=== PATIENT | female | born 1930 | race Caucasian/White ===

== ENCOUNTER 2020-03-14 09:06 | Inpatient (IN) | payer OTHER ==
[~2020-03-14] VITALS: Ht 162.6 cm; Wt 69.4 kg
--- NOTE | 2020-03-14 09:32 | NUR ---
Patient came to ED BIB EMD from facility c/c Sob satting 88 RA ,patient awake alert able to speak noted sob ,place on o2 @ 2L ,hooke in the monitor ,gown ,EKG fall precaution ,call light with in reach continue to monitor .
--- NOTE | 2020-03-14 09:38 | NUR ---
Patient Son made aware of plan of care Augustin [phone] .
[2020-03-14 09:43] LABS: BASOPHILS % (AUTO) 0.5 % (0.0-2.0); EOSINOPHILS % (AUTO) 0.4 % (0.0-6.0); HEMATOCRIT 40 % (33-45); HEMOGLOBIN 13.3 g/dL (11.5-14.8); LYMPHOCYTES # (AUTO) 1.2 /CMM (0.8-4.8); LYMPHOCYTES % (AUTO) 13.6 % (20.0-44.0); MEAN CORPUSCULAR HGB CONC 33 g/dl (31.0-36.0); MEAN CORPUSCULAR VOLUME 94 fL (82-100); MONOCYTES # (AUTO) 0.7 /CMM (0.1-1.30); MONOCYTES % (AUTO) 7.5 % (2.0-12.0); NEUTROPHILS # (AUTO) 7.1 /CMM (1.8-8.9); PLATELET COUNT (AUTO) 327 /CMM (150-450); WHITE BLOOD COUNT (AUTO) 9.1 K/uL (4.3-11.0)
--- NOTE | 2020-03-14 09:56 | NUR ---
Radiology at bedside
[2020-03-14 09:59] LABS: CALCIUM, SERUM 8.6 mg/dL (8.5-10.1); CARBON DIOXIDE 26 mmol/L (21-32); CHLORIDE 106 mmol/L (98-107); CREATININE 1.5 mg/dL (0.6-1.3); GLUCOSE 115 mg/dL (74-106); SODIUM SERUM 142 mmol/L (136-145); UREA NITROGEN, BLOOD 31 mg/dL (7-18)
[2020-03-14 10:04] LABS: ALANINE AMINOTRANSFERASE 183 U/L (12-78); ALBUMIN 3.2 g/dL (3.4-5.0); ALKALINE PHOSPHATASE 100 U/L (46-116); ASPARTATE AMINOTRANSFERASE 86 U/L (15-37); B-TYPE NATRIURETIC PEPTIDE 22251 PG/ML (0-125); BILIRUBIN,DIRECT 0.1 mg/dL (0.0-0.2); BILIRUBIN,TOTAL 0.4 mg/dL (0.2-1.0); TOTAL PROTEIN, SERUM 7.5 g/dL (6.4-8.2)
[2020-03-14] MEDS ORDERED: ACET-73 PO (10:13)
[2020-03-14] MEDS ORDERED: DONE5TAB34 PO (10:13)
[2020-03-14] MEDS ORDERED: BISA-79 PO (10:13)
[2020-03-14] MEDS ORDERED: DEXT15DR6 EACHEYE (10:13)
[2020-03-14] MEDS ORDERED: LOSA25TA27 PO (10:13)
[2020-03-14] MEDS ORDERED: ASPIRIN 325 MG TABLET ONE (10:45)
[2020-03-14] MEDS ORDERED: FUROSEMIDE 40 MG/4 ML VIAL ONE (10:45)
[2020-03-14] MEDS ORDERED: NITROGLYCERIN PACKET 1 GM PACKET ONE (10:46)
--- NOTE | 2020-03-14 10:46 | NUR ---
PAGED [facility] FOR DOCTOR TO DOCTOR.
[2020-03-14] MEDS ORDERED: FUROSEMIDE 40 MG/4 ML VIAL IV ONE (11:00)
[2020-03-14] MEDS ORDERED: ASPIRIN 325 MG TABLET PO ONE (11:00)
[2020-03-14] MEDS ORDERED: NITROGLYCERIN PACKET 1 GM PACKET TD ONE (11:00)
--- NOTE | 2020-03-14 11:29 | NUR ---
Patient elevated BP MD aware with order .
[2020-03-14] MEDS ORDERED: LOSARTAN POTASSIUM 25 MG TABLET PO ONE (11:30)
--- NOTE | 2020-03-14 11:30 | NUR ---
Patient voided BF 300 Ml yellow urine keep patient clean and dry .
[2020-03-14] MEDS ORDERED: LOSARTAN POTASSIUM 25 MG TABLET ONE (11:33)
--- NOTE | 2020-03-14 11:45 | NUR ---
PAGED [facility].
--- NOTE | 2020-03-14 11:53 | NUR ---
PER m/d INSERT INSERT FOLLY CATHETER. PATIENT AGREES TO PLACE A FOLLY CATH. PREP NO NOTED OBSERVED STERILE TECHNIQUE, FR16 GUINEAN YELLOW URINE.
--- NOTE | 2020-03-14 11:57 | NUR ---
Covid swab obtained and send to lab .
--- NOTE | 2020-03-14 12:00 | NUR ---
CALLED NURSING SUP FOR TELE BED.
--- NOTE | 2020-03-14 12:02 | NUR ---
Inserted burgos cath assited by Mercedes Alvarez student nurse .
--- NOTE | 2020-03-14 12:06 | NUR ---
NURSING SUP GAVE TELE BED 201.
--- NOTE | 2020-03-14 12:54 | NUR ---
Fernando report to Pre[facility] FLOOD 201 .
--- NOTE | 2020-03-14 13:30 | NUR ---
RN ADMITTING NOTE Patient arrived on unit via gurney, A/o x2-3 with periods of confusion. Breathing is even and unlabored, showing no signs of acute distress or SOB, saturating 96% on 2L NC. BP 173/94 HR 87 T97.7F RR18. IV line in the LAC#20g is clean and intact s/l. Right wrist #22g is clean and intact s/l. Skin assessed, skin remains intact, patient presents with old scabs and discoloration in BUE and BLE. Bed is in lowest position, side rails x3 in upright position, call light is within reach, fall safety and aspiration precautions enforced. Will continue with plan of care.
[2020-03-14] MEDS ORDERED: HYDROCODONE/APAP 5/325MG TABLET PO PRN (14:00)
[2020-03-14] MEDS ORDERED: BISACODYL (5 MG) 5 MG TABLET.DR PO PRN (14:00)
[2020-03-14] MEDS ORDERED: ENOXAPARIN SODIUM 30 MG/0.3 ML DISP.SYRIN SQ SCH (14:00)
[2020-03-14] MEDS ORDERED: MAG HYDROX/AL HYDROX/SIMETH 30 ML UDC PO PRN (14:00)
[2020-03-14] MEDS ORDERED: ONDANSETRON HCL/PF 4 MG/2 ML VIAL IVP PRN (14:00)
[2020-03-14] MEDS ORDERED: hydrALAZINE HCL IV 20 MG VIAL IV PRN (14:00)
[2020-03-14] MEDS ORDERED: MAGNESIUM HYDROXIDE 30 ML UDC PO PRN (14:00)
[2020-03-14] MEDS ORDERED: CLONIDINE HCL 0.1 MG TABLET PO PRN (14:00)
[2020-03-14] MEDS ORDERED: ACETAMINOPHEN 325 MG TABLET PO PRN (14:00)
[2020-03-14] MEDS ORDERED: Z GUARD REMEDY 2 OZ OINT TP PRN (14:00)
[2020-03-14 16:00] VITALS: BP 137/58
[2020-03-14 16:56] VITALS: BP 137/58
[2020-03-14] MEDS: FUROSEMIDE 40 MG/4 ML VIAL IV SCH ×2 (17:02→21:00)
[2020-03-14] MEDS: hydrALAZINE HCL 50 MG TABLET PO SCH (17:02)
[2020-03-14] MEDS: NITROGLYCERIN 30 GM TUBE TOP SCH (17:56)
[2020-03-14 18:34] LABS: THYROID STIMULATING HORMONE 1.247 uIU/mL (0.358-3.74)
--- NOTE | 2020-03-14 18:59 | NUR ---
RN CLOSING NOTE Patient is resting in bed, A/Ox2, with periods of confusion, showing no signs of acute distress or SOB, saturating 95% on 3L NC. IV lines are clean and intact s/l. Nicholas catheter 1600 out with clear yellow urine. All patient needs met, all due medications given, patient kept clean and dry throughout shift. PCR PENDING. Bed is in lowest position, side rails x3 in upright position, call light is within reach, fall safety and aspiration precautions enforced, will continue with plan of care.
--- NOTE | 2020-03-14 19:41 | NUR ---
APPRAISAL TECHNICIAN OPENING NOTES PATIENT AWAKE IN BED. A/OX2-3. ON 2L NC. NO S/S OF ACUTE RESPIRATORY DISTRESS; BREATHING IS EVEN AND UNLABORED. NO C/O PAIN. TELE MONITOR READING NSR, HEART RATE 89. SUÁREZ CATH PRESENT AND DRAINING WELL; CLEAR YELLOW URINE PRESENT. IV PRESENT ON LEFT AC, SIZE 20 AND RIGHT WRIST, SIZE 20, INTACT & PATENT, HEP LOCKED. CONTACT/DROPLET PRECAUTIONS IN PLACE FOR R/O COVID 19; RESULTS PENDING. SAFETY MEASURES IN PLACE AND PATIENT AND PATIENT'S NEEDS MET. BED LOCKED, ALARM ON, SIDE RAILS X3, CALL LIGHT WITHIN REACH. WILL CONTINUE TO MONITOR.
[2020-03-14 20:00] VITALS: BP 86/42
[2020-03-14] MEDS ORDERED: METOPROLOL TARTRATE 25 MG TABLET PO SCH (21:00)
[2020-03-14 21:11] VITALS: BP 86/42
[2020-03-14 21:42] VITALS: BP 100/58
--- NOTE | 2020-03-14 21:57 | NUR ---
JEWEL SETTER NOTES NOTIFIED POULTRY RAISER WEIGHT LOSS CENTRE MANAGER, SHON LAMBERT, OF PATIENT'S BP OF 100/58. PER BERNARDO MENENDEZ TO HOLD LASIX 4MG IV.
--- NOTE | 2020-03-14 22:25 | NUR ---
BAGGER AND STOCK HANDLER HELPER NOTES RECEIVED CRITICAL LAB VALUE; TROPONIN 1.027. NOTIFIED HEDGE FUND ACCOUNTANT OFFICE ENGINEER, SHON LAMBERT. ORDERS RECEIVED AND CARRIED OUT. WILL CONTINUE TO MONITOR PATIENT.
[2020-03-14] MEDS ORDERED: ATORVASTATIN 10 MG TABLET PO SCH (23:09)
[2020-03-15] VITALS: BP 122/52
[2020-03-15] MEDS ORDERED: NITROGLYCERIN 0.4 MG/TAB BOTTLE SL PRN
[2020-03-15] MEDS ORDERED: MORPHINE SULFATE INJ 2 MG/ML DISP.SYRIN IV PRN
[2020-03-15] MEDS: FUROSEMIDE 40 MG/4 ML VIAL IV SCH (00:47)
--- NOTE | 2020-03-15 00:48 | NUR ---
ROLL WINDER NOTES PATIENT REFUSED SCHEDULED NITROGLYCERIN CREAM. DENIES ANY CHEST PAIN AT THIS TIME. NO S/S OF ACUTE RESPIRATORY DISTRESS; BREATHING IS EVEN AND UNLABORED. VITAL SIGNS - BP: 122/52, HR: 80, TEMP: 97.3, RR: 18, SPO2 96% ON 2L NC. TELE MONITOR READING NSR. SAFETY MEASURES IN PLACE AND PATIENT'S NEEDS MET. WILL CONTINUE TO MONITOR.
[2020-03-15 03:21] LABS: BASOPHILS # (AUTO) 0.1 /CMM (0.0-0.2); BASOPHILS % (AUTO) 0.7 % (0.0-2.0); EOSINOPHILS % (AUTO) 1.4 % (0.0-6.0); HEMATOCRIT 38 % (33-45); HEMOGLOBIN 12.9 g/dL (11.5-14.8); LYMPHOCYTES # (AUTO) 1.5 /CMM (0.8-4.8); LYMPHOCYTES % (AUTO) 17.9 % (20.0-44.0); MEAN CORPUSCULAR HGB CONC 34 g/dl (31.0-36.0); MEAN CORPUSCULAR VOLUME 91 fL (82-100); MONOCYTES # (AUTO) 0.8 /CMM (0.1-1.30); MONOCYTES % (AUTO) 9.4 % (2.0-12.0); NEUTROPHILS # (AUTO) 5.8 /CMM (1.8-8.9); NEUTROPHILS % (AUTO) 70.6 % (43.0-81.0); PLATELET COUNT (AUTO) 349 /CMM (150-450); WHITE BLOOD COUNT (AUTO) 8.2 K/uL (4.3-11.0)
[2020-03-15 03:43] LABS: ALANINE AMINOTRANSFERASE 172 U/L (12-78); ALBUMIN 2.9 g/dL (3.4-5.0); ALKALINE PHOSPHATASE 89 U/L (46-116); ASPARTATE AMINOTRANSFERASE 57 U/L (15-37); BILIRUBIN,TOTAL 0.3 mg/dL (0.2-1.0); CALCIUM, SERUM 8.2 mg/dL (8.5-10.1); CARBON DIOXIDE 28 mmol/L (21-32); CHLORIDE 103 mmol/L (98-107); CHOLESTEROL 168 mg/dL (<200); CREATININE 1.7 mg/dL (0.6-1.3); GLUCOSE 105 mg/dL (74-106); HDL CHOLESTEROL 56 mg/dL (40-60); LDL 93 mg/dL (0-99); MAGNESIUM 2.2 mg/dL (1.8-2.4); PHOSPHORUS 3.8 mg/dL (2.5-4.9); POTASSIUM 3.1 mmol/L (3.5-5.1); SODIUM SERUM 142 mmol/L (136-145); TOTAL PROTEIN, SERUM 6.7 g/dL (6.4-8.2); TRIGLYCERIDES 107 mg/dL (30-150); UREA NITROGEN, BLOOD 35 mg/dL (7-18)
[2020-03-15 04:26] VITALS: BP 158/87
--- NOTE | 2020-03-15 04:26 | NUR ---
INSPECTOR OF DREDGING NOTES NOTIFIED [facility] DIRECTOR ADOBE ARCHITECT, SHON LAMBERT, OF PATIENT'S TROPONIN LEVEL 1.096. RECEIVED ORDERS TO START HEPARIN DRIP. WILL CARRY OUT ORDERS.
--- NOTE | 2020-03-15 04:56 | NUR ---
DECORATOR STORE NOTES CALLED [facility] TO VERIFY HEPARIN DRIP RATE. PER PHARMACIST, UNABLE TO VERIFY PER PROTOCOL; INFORMED TO NOTIFY NURSING PAPER LATCHER TO CONTACT DIRECTOR COMMUNITY ORGANIZATION PHARMACIST.
[2020-03-15] MEDS ORDERED: HEPARIN INFUSION/D5W 500 ML IV PRN (05:00)
[2020-03-15] MEDS ORDERED: HEPARIN SODIUM, PORCINE 5000 UNITS/1 ML VIAL IV ONE ×2 (05:00→08:30)
--- NOTE | 2020-03-15 05:20 | NUR ---
COURT SECURITY OFFICER NOTES PER NURSING AIR VALVE MECHANIC, CALLED [employer] OPERATOR PHARMACIST AND LEFT VOICEMAIL; NO CALL BACK YET. AWAITING FOR PHARMACY TO VERIFY HEPARIN DRIP ORDER.
[2020-03-15] MEDS: NITROGLYCERIN 30 GM TUBE TOP SCH ×4 (06:18→18:00)
--- NOTE | 2020-03-15 07:35 | NUR ---
MS RN OPENING SHIFT NOTES RECEIVED PATIENT AWAKE, A/OX2. ON 2L NC. NO S/S OF ACUTE RESPIRATORY DISTRESS; BREATHING IS EVEN AND UNLABORED WITH NO C/O PAIN. PATIENT IS ON TELE MONITOR, READING NSR, HEART RATE 80. SUÁREZ CATH PRESENT AND DRAINING WELL, 700 ML OF FLAKITO YELLOW URINE NOTIED IN BAG. IV PRESENT ON LEFT AC, SIZE 20 AND RIGHT WRIST, SIZE 20, INTACT & PATENT, HEP LOCKED. CONTACT/DROPLET PRECAUTIONS IN PLACE FOR R/O COVID 19, RESULTS PENDING. RAPID COVID WAS -NEGATIVE. BED AT LOWEST POSITION AND LOCKED WITHSIDE RAILS UP X 2, CALL LIGHT WITH IN REACH. SAFETY MEASURES IN PLACE, WILL CONTINUE TO MONITOR
--- NOTE | 2020-03-15 07:41 | NUR ---
FRONT DESK CLOSING NOTES PATIENT AWAKE. A/OX2. ON 2L NC. NO S/S OF ACUTE RESPIRATORY DISTRESS; BREATHING IS EVEN AND UNLABORED. NO C/O PAIN. TELE MONITOR READING NSR, HEART RATE 90. SUÁREZ CATH PRESENT AND DRAINING WELL; 1000 ML OF CLEAR YELLOW URINE EMPTIED. IV PRESENT ON LEFT AC, SIZE 20 AND RIGHT WRIST, SIZE 20, INTACT & PATENT, HEP LOCKED. CONTACT/DROPLET PRECAUTIONS IN PLACE FOR R/O COVID 19; RESULTS PENDING. SAFETY MEASURES IN PLACE AND PATIENT AND PATIENT'S NEEDS MET. BED LOCKED, ALARM ON, SIDE RAILS X3, CALL LIGHT WITHIN REACH. ENDORSED TO DAY SHIFT RN PLAN OF CARE.
[2020-03-15 08:00] VITALS: BP 118/63
[2020-03-15] MEDS ORDERED: FUROSEMIDE 40 MG/4 ML VIAL IV SCH (09:00)
[2020-03-15] MEDS ORDERED: CLOPIDOGREL BISULFATE 75 MG TABLET PO SCH (09:00)
[2020-03-15] MEDS ORDERED: DONEPEZIL 5 MG TABLET PO SCH (09:00)
[2020-03-15] MEDS: hydrALAZINE HCL 50 MG TABLET PO SCH ×3 (09:25→16:47)
[2020-03-15] MEDS: METOPROLOL TARTRATE 25 MG TABLET PO SCH ×2 (09:30→20:28)
[2020-03-15] MEDS: POTASSIUM CHLORIDE 20 MEQ TAB.PRT.SR PO SCH ×2 (10:16→11:21)
[2020-03-15 12:08] LABS: *SPE A/G RATIO 0.8 (0.7-1.7); *SPE ALBUMIN 2.9 g/dL (2.9-4.4); *SPE ALPHA-1-GLOBULIN 0.3 g/dL (0.0-0.4); *SPE BETA GLOBULIN 0.9 g/dL (0.7-1.3); *SPE GLOBULIN, TOTAL 3.5 g/dL (2.2-3.9); *SPE M-SPIKE Not Observed g/dL (Not Observed); *SPEGAMMA GLOBULIN 1.3 g/dL (0.4-1.8)
[2020-03-15] MEDS ORDERED: ASPIRIN 81 MG TAB.CHEW PO SCH (14:00)
--- NOTE | 2020-03-15 18:00 | NUR ---
SHOP COORDINATOR NOTES PT IN BED, AWAKE, ALERT, CONFUSED, NO COMPLAINT OF PAIN, NOT IN DISTRESS, CALL LIGHT WITHIN REACH, ON HEPARIN DRIP, NOTED WITH BLOOD IN URINE, DR. MARTINEZ INFORMED, NO NEW ORDERS, DISCHARGE ORDER GIVEN, PT FOR TRANSFER TO [facility], PT AND PT'S SON JAMIR INFORMED, LEFT MESSAGE ON HIS PHONE [phone], SON JAMIR AWARE OF PT'S PLANNED TRANSFER TO [facility]. PT REFUSED SKIN PHOTOS, BELONGINGS ACCOUNTED FOR, REPORT GIVEN TO ALEENA TAVERAS OF [facility], AWAITING PT TRANSFER.
--- NOTE | 2020-03-15 19:32 | NUR ---
PIGSKIN TRIMMER NOTES SPOKE WITH [facility] FLOOD FOR [place], REPORT GIVEN REGARDING PT'S HEPARIN DRIP STATUS.
[2020-03-15 20:00] VITALS: BP 147/60
[2020-03-15 20:28] VITALS: BP 147/60
--- NOTE | 2020-03-15 20:40 | NUR ---
TELE/RN OPENING NOTE Patient awake in bed, A/Ox2, periods of confusion noted, must reorient to place. Tele monitor reading sinus rhythm. Breathing even, clear, unlabored, on room air. No acute distress or SOB noted. Skin warm pink dry. Bilateral upper and lower extremity discoloration noted. Patient is ambulatory with assist, unsteady gait. IV site right wrist 20g, saline locked. Bed in low position, wheels locked, side rails up x2, call light within reach.
--- NOTE | 2020-03-15 21:46 | NUR ---
TELE/INTERPRETATIVE DANCER NOTE Ambulance arrived at 2140. Patient discharged with all belongings and valuables, reviewed with patient. IV site RFA 22g, heparin drip 1150 units/hr, 23 ml/hr. No signs of redness or infiltration. All patient discharge documents given to patient. VSS. Report given to ALEENA Christianson. Receiving nurse is ALEENA Sandoval.
== END 2020-03-15 22:03 | disposition short-term general hospital (02) | DRG 280 ==
LOC: ER 09:25 → TELE2 12:22
PROVIDERS: ADMIT Internal Medicine; ATTEND Internal Medicine
DX: I21.4 Non-ST elevation (NSTEMI) myocardial infarction (principal); E43 Unspecified severe protein-calorie malnutrition; G93.41 Metabolic encephalopathy; N17.0 Acute kidney failure with tubular necrosis; G30.9 Alzheimer's disease, unspecified; F02.80 Dementia in other diseases classified elsewhere, unspecified severity, without behavioral disturbance, psychotic disturbance, mood disturbance, and anxiety; Z79.899 Other long term (current) drug therapy; I16.0 Hypertensive urgency; I12.9 Hypertensive chronic kidney disease with stage 1 through stage 4 chronic kidney disease, or unspecified chronic kidney disease; N18.9 Chronic kidney disease, unspecified
CPT/HCPCS: 36415; 71045-TC; 80048-TC; 80053-TC; 80061-TC; 80076-TC; 83735-TC; 83880; 84100-TC; 84155; 84165; 84439-TC; 84443-TC; 84484-TC; 85025-TC; 85730-TC; 87040-TC; 87081-TC; 87186-TC; 93307-TC; G0378; J1644; J1650; J1940; J7050